=== PATIENT | female | born 1960 | race Caucasian/White ===

== ENCOUNTER → 2024-03-31 16:16 | Outpatient (REF) | payer MEDICARE, OTHER, SELFPAY | LOC: RAD 16:16 | PROVIDERS: ATTENDING PHYSICIAN Internal Medicine; FAMILY PHYSICIAN Nurse Practitioner Adult Health | DX: N18.31 Chronic kidney disease, stage 3a (principal) | CPT/HCPCS: 76770 ==

== ENCOUNTER → 2024-04-28 14:13 | Outpatient (REF) | payer OTHER, SELFPAY | LOC: RAD 14:13 | PROVIDERS: ATTENDING PHYSICIAN Nurse Practitioner Adult Health | DX: R05.1 Acute cough (principal) | CPT/HCPCS: 71046 ==

== ENCOUNTER 2024-06-05 20:35 | Inpatient (IN) | payer OTHER, SELFPAY ==
[2024-06-05] VITALS (9 sets, daily range): BP systolic 99–177; BP diastolic 75–122; BMI 17.4
[2024-06-05 15:40] LABS: COVID-19 Antigen Negative (Negative)
[2024-06-05 15:46] LABS: Lactic Acid 4.4 mmol/L (0.7-2.0)
[2024-06-05 15:50] LABS: % Basophils 0.4 % (0-2); % Eosinophils 0.4 % (0-6); % Immature Granulocytes 1.6 % (0-0.5); % Lymphocytes 5.4 % (20.5-51.1); % Monocytes 7.5 % (1.7-9.3); % Neutrophils 84.7 % (42.2-75.2); Absolute Basophils 0.1 10^3/uL (0-0.2); Absolute Eosinophils 0.1 10^3/uL (0-0.7); Absolute Immature Granulocytes 0.2 10^3/uL (0-0.05); Absolute Lymphocytes 0.7 10^3/uL (1.2-3.4); Absolute Neutrophils 11.6 10^3/uL (1.4-6.5); Hematocrit 36.6 % (37.0-47.0); Mean Corp Hgb Conc. 32.8 g/dL (33.0-37.0); Mean Corpuscular Hgb 29.7 pg (27.0-31.0); Mean Corpuscular Volume 90.6 fL (81.0-99.0); Mean Platelet Volume 8.2 fL (7.4-10.4); Nucleated Red Blood Cells % 0 %; Platelet Count 364 10^3/uL (130-400); Red Blood Cell Count 4.04 10^6/uL (4.20-5.40); Red Cell Dist. Width 15.2 % (11.5-14.5); White Blood Cell Count 13.7 10^3/uL (4.8-10.8)
[2024-06-05 16:11] LABS: ALT (SGPT) 12 U/L (0-35); AST (SGOT) 17 U/L (14-36); Albumin 3.8 g/dl (3.5-5.0); Alkaline Phosphatase 110 U/L (38-126); Blood Urea Nitrogen 27 mg/dl (7-17); Calcium 9.8 mg/dl (8.4-10.2); Carbon Dioxide 37 mmol/L (22-30); Chloride 83 mmol/L (98-107); Glucose 146 mg/dl (70-99); Potassium 4.5 mmol/L (3.5-5.1); Sodium 130 mmol/L (135-145); Total Bilirubin 0.4 mg/dl (0.2-1.3); Total Protein 7.3 g/dl (6.3-8.2); eGFR 41.49
[2024-06-05 16:25] LABS: Troponin I < 0.012 ng/ml
--- NOTE | 2024-06-05 16:46 | ED.GENMED ---
History of Present Illness
General
Chief Complaint: Blood Pressure Problem
Source: patient
Exam Limitations: none
Time Seen by Provider: 06/05/24 16:08
Nursing documentation reviewed up to this point in time: agreed with
History of Present Illness
History of Present Illness:
64 y/o F with h/o COPD
lung cancer s/p RUL resection, radiation
tonsil cancer s/p radiaition
htn, anxiety
2 weeks cough
went to on 05/25 and had cxr couldn't exclude pna
started pred 30 mg x 4 days and zpak
flu and covid were neg
cough never resolved
the pat 3-4 days she is now MCGILL, fatigued, not feelin g well
has to sit in the shower
started checking BP more regularly than twie a day which she normally takes it
always runs 'high 'in the morning snad has been lower at night so she has been holding her metop 25 ER and halfing her nifedipine 30 in the am
this morning her bp was 116/70s whih is unusually low
she didn't feel well
she didn't take her nifedpine
within an hour her bp crept up
she took it several more times up to 150/90, took her med
got worried and was planning on coming in later
but then around 2 pm while at [place] sudden onset of chest tightnes and sob
she got anxious from this and took asa and it resolved but she doesn't feel right
no vomiting, dairrhea, dysuria, h/o DVT/PE, leg swelling, sycnope, coughing blood, sroe throat
no new fever
Past History
Past History
ED Past Medical History: Cancer, COPD and HTN
ED Past Surgical History: Tonsilectomy and Other
Social History
Tobacco: Former smoker
Alcohol: None
Personal:
Review of Systems
Review of Systems
Allergies reviewed?: Yes
All Other Systems: Not applicable
Phy Exam
Physical Exam
Physical Exam:
GENERAL: Alert , anxious, tremulous, worse with intention
EYE: pupils equal and reactive
NECK: Supple
ENT: o/p clr, mmm.
CARDIAC: tachycardic
LUNGS: crackles and wheezes, occ cough
scoliosis SEVERE
ABDOMEN: Soft, without focal tenderness, no r/g, no cvat, normal bowel sounds
NEUROLOGICAL: Alert and oriented, no focal neuro deficits
SKIN: Warm and dry, skin intact.
MUSCULOSKELETAL: No edema, well perfused. neg mirtha's sign
PSYCH: Normal and appropriate interaction.
Sepsis
Sepsis Screening
Sepsis Assessment: Sepsis
Sepsis Screening: Lactate >/=4mmol/L
Sepsis Screen
Sepsis Screen: Sepsis
Date: 06/05/24
Time: 19:00
Course
Orders/Labs/Results
Orders:
Orders
06/05/24 15:04
Electrocardiogram (*1) Urgent
Reason for Study: Chest Pain
06/05/24 15:05
EKG- Treatment ONCE
06/05/24 15:14
COVID-19 Antigen Urgent
Source: Nasal Swab
Complete Blood Count/With Diff Urgent
Comprehensive Metabolic Panel Urgent
Lactic Acid Urgent
NT-proBNP Urgent
Comment: ADD ON
Troponin I Urgent
Influenza A+B Rapid Molecular Urgent
MARIAM Source: Nasal Swab
Specimen Description:
06/05/24 16:34
Add On- LAB Urgent
Tests Added?: bnp
06/05/24 16:42
CT Chest PE Study Urgent
Comment:
Reason For Exam: dyspnea, cough, cancer history
06/05/24 16:44
0.9% Sodium Chloride 1000 ml [Nss] 1,200 ml IV NOW STA
06/05/24 16:46
Procalcitonin Urgent
PCT Algorithmm Indication: Respiratory
06/05/24 16:50
Blood Culture Q30M
MARIAM Source: Blood/Venous
Specimen Description:
06/05/24 17:30
Blood Culture Q30M
MARIAM Source: Blood/Venous
Specimen Description:
06/05/24 18:32
Azithromycin 500 mg/250 ml [Zithromax Infusion] 500 mg in 250 ml IV NOW
CefTRIAXone [Rocephin] 1,000 mg IV NOW STA
06/05/24 20:10
Admit/Transfer Patient As Directed
Co-Sign Provider:
Level of Care: Inpatient admission
Assign to:: Telemetry
Physician / Group: Rigo
Diagnosis: Pneumonia, Sepsis
Reason for Telemetry: Chest Pain syndromes
Date to Stop Telemetry: 06/07/24
Time to Stop Telemetry: 11:00
Reason for Hospitalization: Pneumonia, Sepsis
Expected length of stay greater than two midnights?: Yes
ELOS- Estimated Length of Stay in days: 3
I certify the patient meets the requirements for IP care: Yes
PRN Pain Medication Management As Directed
May give lesser potent ordered pain med per pt: Yes
preference::
Protocol:: Medication orders for pain may be administered in a
manner that supports deferring to patient preference
when the pt is:
- Requesting an ordered lesser potent pain medication.
Least to most potent pain medications are defined
as: acetaminophen < NSAID < tramadol < opioids
(morphine, oxycodone, hydromorphone).
- Requesting a lesser dose of the same medication IF
ORDERED.
- Requesting a less intrusive route of administration
if both routes are prescribed by the provider (PO <
IV).
06/05/24 20:12
Code Status As Directed
Resuscitation Status: Full Code
06/07/24 11:00
DC Protocol for Telemetry ONCE
Abnormal Lab Results
06/05/24 06/05/24
15:14 16:46
WBC 13.7 H 10^3/uL
(4.8-10.8)
RBC 4.04 L 10^6/uL
(4.20-5.40)
Hct 36.6 L %
(37.0-47.0)
MCHC 32.8 L g/dL
(33.0-37.0)
RDW 15.2 H %
(11.5-14.5)
Abs Immat Gran (auto) 0.2 H 10^3/uL
(0-0.05)
Absolute Neuts (auto) 11.6 H 10^3/uL
(1.4-6.5)
Absolute Lymphs (auto) 0.7 L 10^3/uL
(1.2-3.4)
Absolute Monos (auto) 1.0 H 10^3/uL
(0.1-0.6)
Immature Gran % 1.6 H %
(0-0.5)
Neutrophils % 84.7 H %
(42.2-75.2)
Lymphocytes % 5.4 L %
(20.5-51.1)
Sodium 130 L mmol/L
(135-145)
Chloride 83 L mmol/L
(98-107)
Carbon Dioxide 37 H mmol/L
(22-30)
BUN 27 H mg/dl
(7-17)
Creatinine 1.4 H mg/dL
(0.6-1.0)
Glucose 146 H mg/dl
(70-99)
Lactic Acid 4.4 H* mmol/L
(0.7-2.0)
Procalcitonin 0.54 H ng/ml
(0.0-0.25)
06/05/24 15:14
06/05/24 15:14
Vital Signs
Initial and Last Documented VS:
Initial Vital Signs
Temp Pulse Resp BP Pulse Ox
36.9 C 130 24 177/122 92
06/05/24 15:01 06/05/24 15:01 06/05/24 15:01 06/05/24 15:01 06/05/24 15:01
Last Documented Vital Signs
Temp Pulse Resp BP Pulse Ox
36.9 C 104 17 99/75 94
06/05/24 15:01 06/05/24 21:00 06/05/24 21:00 06/05/24 21:00 06/05/24 21:00
MDM/Problems Addressed
Differential Diagnosis Includes:
PNA, PE, ACS, SEPSIS
MDM/Problems Addressed:
kalli miler 64 y/o F h/o lung ca remotely, anxiety, htn
2 weeks cough, neg flu/covid and had zpak but not better;
3 days fatigue with exertion and sob; tachy, pulse ox 92% slightly wheezy;
wbc 13 lactate 4; repeating after ivf;
bp normal
pe study neg
b/l pneumonia on CT
SEPSIS CRITERIA MET
ABX ORDERED
IVF AND NEEDS REPEAT LACTIC
STABLE VITALS
*Critical Care Note
Total Time (30-74mins, 75-104mins- exclusive of procedures): Not Applicable
ED Attending Note
-
Portions of this chart may have been created with voice recognition software.� Occasional wrong word or��sound alike� substitutions may have occurred due to the inherent limitations of voice recognition software.
Discharge Plan
Departure
Patient Disposition: Admit
Date of Disposition: 06/05/24
Time of Disposition: 18:24
Admit to: Telemetry
Presentation/result/management discussed w/ accepting MD/DO: Hospitalist
Condition: Fair
Covid-19: Negative COVID-19
Discharge Problem:
Pneumonia
Interventions
Interventions:
*Risk Screen - Suicide Last Done: 06/05/24 16:41
*General Assessment Last Done: 06/05/24 15:01
*Neglect/Abuse Screening Last Done: 06/05/24 16:41
*ED COVID-19 Vaccine History Last Done: 06/05/24 16:41
ED- Cardiac Assessment Last Done: 06/05/24 16:44
ED- Neurological Assessment Last Done: 06/05/24 16:44
ED- Pulmonary Assessment Last Done: 06/05/24 16:44
[2024-06-05] MEDS: NSS 1200 ML IV (16:47)
[2024-06-05 17:20] LABS: NT-proBNP 384 pg/ml
[2024-06-05 17:29] LABS: Procalcitonin 0.54 ng/ml (0.0-0.25)
[2024-06-05] MEDS: ZITHROMAX INFUSION 250 IV (18:54)
[2024-06-05] MEDS: ROCEPHIN 1000 MG IV (18:54)
--- NOTE | 2024-06-05 20:21 | HPS.HSE ---
Family Physician
-
Family Physician: ERVIN Cobos
Chief Complaint
-
Cough, Chest Tightness
History of Present Illness
Patient is a 64y F with PMH significant for COPD, prior lung cancer, CKD and hypertension who presents to ED complaining of cough and chest pain. Patient states that she has been ill with cough / congestion symptoms for the past 3 weeks or so.
She was seen at an Urgent Care about two weeks ago and treated with a course of azithromycin and prednisone. She states that her fever resolved; however, her cough and fatigue has persisted. She has been monitoring her SpO2 at home and this has
frequently been in the 80s.
Today she states she was actually feeling somewhat better. However, this evening she developed the sudden onset of chest tightness. She took an ASA at home and called 911 and was brought to the ED via EMS.
At present she is resting comfortably in the ED. She states that she feels better with supplemental O2. She is pain-free at present.
Medical History
Past Medical History
Past Medical History: Reports Other
Additional Past Medical History:
NSCLC (RUL lobectomy, chemo, XRT)
Left Upper Lobe Nodule (excised)
Tonsillar Cancer (excision / XRT)
Hypertension
CKD III
Chronic Hyponatremia
Myasthenia Gravis
COPD
Hypothyroidism
Anxiety / Depression
Chronic Pain Syndrome
Past Surgical History: Reports Other
Additional Past Surgical History:
Right Upper Lobectomy
Left Lung Nodule Resection
T&A
Tonsillar Cancer Resection
Social History
Tobacco: Former Smoker (Quit smoking in 2009. Approx 50 pack years total history.)
Alcohol: Occasional (Rare.)
Drug: None
Family History
Family History: Cancer and Hypertension
Allergies / Home Medications
Allergies reflects when Allergies were last updated in [facility].
Home Medications with original date entered in [facility]
Allergy/Medication List:
Allergies
Allergy/AdvReac Type Severity Reaction Status Date / Time
No Known Allergies Allergy Verified 06/05/24 15:01
Home Medications
fluticasone furoate 100 mcg-vilanterol 25 mcg/dose inhalation powder (Breo Ellipta) 1 inh inhalation R DAILY Lung/breathing issues 07/23/22
levothyroxine 75 mcg tablet 75 mcg PO DAILY AT 0700 Thyroid 07/23/22
lorazepam 0.5 mg tablet 0.5 mg PO DAILYPRN PRN anxiety 07/23/22
metoprolol succinate 25 mg tablet,extended release 24 hr 25 mg PO DAILY Blood pressure 07/23/22
mirtazapine 15 mg tablet 15 mg PO HS Mental Health/Anxiety 07/23/22
oxycodone 30 mg tablet 15 mg PO DAILY 07/23/22
lorazepam 0.5 mg tablet 0.5 mg PO HS mental health/sleep 02/21/23
furosemide 20 mg tablet 20 mg PO DAILY #30 tabs 02/26/23
buprenorphine 20 mcg/hour weekly transdermal patch 1 patch transdermal TU 06/05/24
nifedipine 30 mg tablet,extended release 15 mg PO DAILY 06/05/24
nystatin 100,000 unit/mL oral suspension 5 ml PO QID 06/05/24
oxycodone 30 mg tablet 15 mg PO DAILYPRN PRN severe pain 06/05/24
sennosides 8.6 mg tablet (senna) 17.2 mg PO HS 06/05/24
Review of Systems
-
History Source: Patient
A 12 point ROS was completed and negative except as noted: Yes
Constitutional: Reports Fatigue; Denies Fever or Chills
EENT: Denies Sore Throat
Respiratory: Reports Cough and Trouble Breathing
Cardiac: Reports Chest Pain and Palpitations; Denies Diaphoresis or Syncope
Abdomen/GI: Denies Abdominal Pain, Nausea, Vomiting or Diarrhea
: Denies Dysuria or Frequency
Musculoskeletal: Denies Joint Pain or Edema
Neurological: Denies Dizzy or Headache
Psych: Denies Depression or Anxiety
Physical Exam
Vital Signs
Vital Signs
Temp Pulse Resp BP Pulse Ox
98.4 F 105 20 104/89 95
06/05/24 15:01 06/05/24 19:15 06/05/24 19:15 06/05/24 19:00 06/05/24 19:15
Physical Exam
General: Other (64y F in no acute distress. Thin / cachectic.)
HEENT: Moist mucous membranes, PERRLA and Other (Neck supple.)
Respiratory: Other (Coarse rhonchi throughout. No wheezing.)
Cardiac: S1/S2 and Regular Rhythm; No Murmur
GI: Soft, Non Tender, Non Distended and Normal Bowel Sounds
Musculoskeletal: No Clubbing, No Cyanosis, No Edema and Other (R scapula post-surgical changes / deformity from RUL resection)
Neuro: AO x 3
Laboratory Results
-
06/05/24 15:14
06/05/24 15:14
Laboratory Results
Lactic Acid 4.4 mmol/L (0.7-2.0) H* 06/05/24 15:14
Total Bilirubin 0.4 mg/dl (0.2-1.3) 06/05/24 15:14
AST 17 U/L (14-36) 06/05/24 15:14
ALT 12 U/L (0-35) 06/05/24 15:14
Alkaline Phosphatase 110 U/L (38-126) 06/05/24 15:14
Troponin I < 0.012 ng/ml 06/05/24 15:14
Impression/Plan
-
A/P: Patient is a 64y F with PMH significant for multiple malignancies s/p treatment, COPD, HTN and CKD who presents to ED complaining of 3 weeks of respiratory symptoms and chest tightness starting this evening.
Multifocal Pneumonia
Sepsis secondary to the above
- Admit for further evaluation and treatment.
- Patient presents with tachycardia, tachypnea, leukocytosis and CT scan showing pneumonia.
- CT done in the ED shows bibasilar opacities +/- lingular opacity c/w pneumonia.
- Lactate elevated at 4.4.
- Abx with ceftriaxone and doxycycline for now.
- Supportive care including nebs, mucolytics, etc.
- Follow for clinical improvement.
Chest Pain
- Patient presented this evening after sudden onset of chest tightness, palpitations and increased SOB.
- CT negative for PE.
- EKG without evidence for acute ischemia. Non-specific ST and T wave changes.
- Initial troponin is undetectable. Follow for changes.
- Monitor for any new / recurrent symptoms.
- Suspect related to pneumonia.
Chronic Hyponatremia
- Stable. Na levels appear to be at / near known baseline.
- Hold Lasix acutely given sepsis / lactate elevation.
- Fluid restriction. Check urine studies.
- Follow for changes.
CKD III
- Stable. Renal function is at / near known baseline.
- Follow for changes.
Benign Hypertension
- Stable. Continue outpatient med regimen with holding parameters.
COPD
- No evidence of acute exacerbation, active wheezing, etc.
- Nebs ATC and PRN.
Chronic Pain Syndrome
Chronic Opioid Dependence
- Stable. No current complaints of pain.
- Continue buprenorphine patch. Oxycodone PRN breakthrough pain.
Anxiety /Depression
- Stable. Continue outpatient medications.
Hypothyroidism
- Stable. Continue T4 supplementation.
DVT Prophylaxis: Subcut Heparin
Code Status: Full
[2024-06-05 22:54] LABS: Troponin I < 0.012 ng/ml
[2024-06-05] MEDS: HEPARIN 5000 UNITS SC (23:03)
[2024-06-05] MEDS: SENOKOT 17.2 MG PO (23:03)
[2024-06-05] MEDS: REMERON 15 MG PO (23:04)
[2024-06-05] MEDS: ROXICODONE 15 MG PO (23:04)
[2024-06-05] MEDS: ATIVAN 0.5 MG PO (23:04)
[2024-06-06 03:50] VITALS: BP 141/99
[2024-06-06 04:23] LABS: Troponin I < 0.012 ng/ml
[2024-06-06] MEDS: SYNTHROID 75 MCG PO (05:19)
[2024-06-06 07:30] VITALS: BP 136/90
[2024-06-06] MEDS: SYMBICORT 160/4.5 MCG INHALER 2 PUFF INH ×2 (07:46→19:13)
[2024-06-06] MEDS: DUONEB 3 ML INH ×4 (07:46→19:13)
[2024-06-06 07:54] LABS: Hematocrit 29.3 % (37.0-47.0); Hemoglobin 9.6 g/dL (12.0-16.0); Mean Corp Hgb Conc. 32.8 g/dL (33.0-37.0); Mean Corpuscular Hgb 28.9 pg (27.0-31.0); Mean Corpuscular Volume 88.3 fL (81.0-99.0); Mean Platelet Volume 8.6 fL (7.4-10.4); Platelet Count 325 10^3/uL (130-400); Red Blood Cell Count 3.32 10^6/uL (4.20-5.40); Red Cell Dist. Width 15.1 % (11.5-14.5); White Blood Cell Count 8.6 10^3/uL (4.8-10.8)
[2024-06-06 08:08] LABS: Blood Urea Nitrogen 20 mg/dl (7-17); Carbon Dioxide 36 mmol/L (22-30); Chloride 88 mmol/L (98-107); Estimated Creatinine Clearance 29 ml/min; Glucose 85 mg/dl (70-99); HDL Cholesterol 38 mg/dl; LDL Cholesterol, Calculated 85 mg/dl; Potassium 3.5 mmol/L (3.5-5.1); Sodium 131 mmol/L (135-145); Total Cholesterol 145 mg/dl (50-199); Triglyceride 114 mg/dl (10-149); Very Low Density Lipoprotein 22 mg/dl (0-30); eGFR 45.35
[2024-06-06] MEDS: TOPROL XL 25 MG PO (08:36)
[2024-06-06] MEDS: HEPARIN 5000 UNITS SC ×2 (08:36→15:06)
[2024-06-06] MEDS: VIBRAMYCIN 100 MG PO ×2 (08:36→21:06)
[2024-06-06] MEDS: MUCINEX 600 MG PO ×2 (08:36→21:06)
[2024-06-06] MEDS: ROXICODONE 15 MG PO ×2 (08:44→17:12)
[2024-06-06 10:22] LABS: Troponin I < 0.012 ng/ml
[2024-06-06 10:26] LABS: Glycohemoglobin (HgbA1c) 6.3 % (4.0-5.6)
[2024-06-06 10:36] LABS: Urine Sodium 51 mmol/L (30-90)
[2024-06-06 11:03] VITALS: BMI 17.4
[2024-06-06 11:30] VITALS: BP 118/86
[2024-06-06 12:47] LABS: Osmolality Urine 314 mOsm/kg (300-900)
--- NOTE | 2024-06-06 13:57 | W.PN.HOSP.TC ---
Today's Communication/Plan
-
see plan above
Assessment / Plan
Assessment / Plan
A/P: Patient is a 64y F with PMH significant for multiple malignancies s/p treatment, COPD, HTN and CKD who presents to ED complaining of 3 weeks of respiratory symptoms and chest tightness starting this evening.
Multifocal Pneumonia
Severe Sepsis secondary to the above; lactic 4.4 on admission
- HD stable today
- Patient presents with tachycardia, tachypnea, leukocytosis and CT scan showing pneumonia.
- CT done in the ED shows bibasilar opacities +/- lingular opacity c/w pneumonia.
- Lactate elevated at 4.4.
- cw Abx with ceftriaxone and doxycycline for now.
- Supportive care including nebs, mucolytics, etc.
- Follow for clinical improvement.
Chest Pain
- Patient presented this evening after sudden onset of chest tightness, palpitations and increased SOB.
- CT negative for PE. No TX based on trops.
- EKG without evidence for acute ischemia. Non-specific ST and T wave changes.
- Monitor for any new / recurrent symptoms.
- Suspect related to pneumonia.
Chronic Hyponatremia
- Stable. Na levels appear to be at / near known baseline.
- Hold Lasix acutely given sepsis / lactate elevation.
- Fluid restriction. Check urine studies.
- Follow for changes.
CKD III
- Stable. Renal function is at / near known baseline.
- Follow for changes.
Benign Hypertension
- Stable. Continue outpatient med regimen with holding parameters.
COPD
- No evidence of acute exacerbation, active wheezing
- Nebs ATC and PRN.
Chronic Pain Syndrome
Chronic Opioid Dependence
- Stable. No current complaints of pain.
- Continue buprenorphine patch. Oxycodone PRN breakthrough pain.
Anxiety /Depression
- Stable. Continue outpatient medications.
Hypothyroidism
- Stable. Continue T4 supplementation.
DVT Prophylaxis: Subcut Heparin
Code Status: Full
Anticipated Discharge: > 48 hours
Subjective/Interval History
-
Date of Service: June 06, 2024
Feels bit better but hasnt gotten out of bed to get an idea.
She has lot of exertional SOB.
Cough present and productive.
Denies wheezing.Denies Fever or chills.
She had fever 2 weeks ago prior to onset of all this.
She was having night sweats prior to admission.
Objective Data
-
Labs:
Laboratory Results
06/06/24
07:02
WBC 8.6
Hgb 9.6 L
Hct 29.3 L
Plt Count 325
Sodium 131 L
Potassium 3.5
Chloride 88 L
Carbon Dioxide 36 H
BUN 20 H
Creatinine 1.3 H
Glucose 85
Calcium 9.0
Vital Signs:
Vital Signs
Temp Pulse Resp BP Pulse Ox
97.8 F 96 18 118/86 99
06/06/24 11:30 06/06/24 11:30 06/06/24 11:30 06/06/24 11:30 06/06/24 11:30
I&O
06/05/24 06/06/24 06/07/24
06:59 06:59 06:59
Intake Total 240 / 240
Balance 240 / 240
Review of Systems
-
EENT: Denies Sore Throat
Cardiac: Denies Chest Pain
Abdomen/GI: Denies Abdominal Pain, Nausea or Vomiting
Neuro: Denies Dizzy
Physical Exam
-
General: Comfortable
Respiratory: Wheezes (transient in RUL ), Crackles (few bibasal) and Non Labored Respirations; Negative Rhonchi or Accessory Resp Muscle Use
Cardiac: Regular Rhythm, S1/S2 and Tachycardic
GI: Soft
Musculoskeletal: No Edema
Neuro: AO x 3
Psych: Calm; Negative Confused
Data Reviewed
-
Labs: Labs Reviewed by me
[2024-06-06 15:30] VITALS: BP 108/64
[2024-06-06] MEDS: STERILE WATER FOR INJECTION 10 ML IV (17:04)
[2024-06-06] MEDS: ROCEPHIN 1000 MG IV (17:05)
[2024-06-06 19:39] VITALS: BP 124/79
[2024-06-06] MEDS: SENOKOT 17.2 MG PO (21:06)
[2024-06-06] MEDS: ATIVAN 0.5 MG PO (21:06)
[2024-06-06] MEDS: REMERON 15 MG PO (21:06)
[2024-06-06] MEDS: HEPARIN SC (23:00)
[2024-06-06 23:49] VITALS: BP 117/85
[2024-06-07] VITALS (7 sets, daily range): BP systolic 93–143; BP diastolic 63–96; BMI 17.3
[2024-06-07] MEDS: SYNTHROID 75 MCG PO (05:12)
[2024-06-07 07:26] LABS: Hematocrit 29.1 % (37.0-47.0); Hemoglobin 9.7 g/dL (12.0-16.0); Mean Corp Hgb Conc. 33.3 g/dL (33.0-37.0); Mean Corpuscular Hgb 29.6 pg (27.0-31.0); Mean Corpuscular Volume 88.7 fL (81.0-99.0); Mean Platelet Volume 8.5 fL (7.4-10.4); Platelet Count 353 10^3/uL (130-400); Red Blood Cell Count 3.28 10^6/uL (4.20-5.40); Red Cell Dist. Width 15.4 % (11.5-14.5); White Blood Cell Count 8.8 10^3/uL (4.8-10.8)
[2024-06-07] MEDS: DUONEB 3 ML INH ×4 (07:44→19:14)
[2024-06-07] MEDS: SYMBICORT 160/4.5 MCG INHALER 2 PUFF INH ×2 (07:44→19:14)
[2024-06-07] MEDS: MUCINEX 600 MG PO ×2 (08:01→20:10)
[2024-06-07] MEDS: HEPARIN 5000 UNITS SC ×2 (08:01→15:34)
[2024-06-07] MEDS: VIBRAMYCIN 100 MG PO ×2 (08:01→20:10)
[2024-06-07 08:03] LABS: Blood Urea Nitrogen 21 mg/dl (7-17); Calcium 9.3 mg/dl (8.4-10.2); Carbon Dioxide 34 mmol/L (22-30); Chloride 87 mmol/L (98-107); Estimated Creatinine Clearance 31 ml/min; Glucose 84 mg/dl (70-99); Potassium 3.8 mmol/L (3.5-5.1); Sodium 128 mmol/L (135-145); eGFR 49.92
[2024-06-07] MEDS: TOPROL XL 25 MG PO (08:05)
[2024-06-07] MEDS: ROXICODONE 15 MG PO ×2 (08:47→16:58)
--- NOTE | 2024-06-07 12:18 | W.PN.HOSP.TC ---
Today's Communication/Plan
-
CW current abx
Wean O2
DC planning
Assessment / Plan
Assessment / Plan
A/P: Patient is a 64y F with PMH significant for multiple malignancies s/p treatment, COPD, HTN and CKD who presents to ED complaining of 3 weeks of respiratory symptoms and chest tightness starting this evening.
Multifocal Pneumonia
Severe Sepsis secondary to the above; lactic 4.4 on admission
- Patient presents with tachycardia, tachypnea, leukocytosis and CT scan showing pneumonia.
- CT done in the ED shows bibasilar opacities +/- lingular opacity c/w pneumonia.
- Lactate elevated at 4.4.
- cw Abx with ceftriaxone and doxycycline for now.
- Supportive care including nebs, mucolytics, etc.
- Improved clinically. On lesser FIO2
- BCX neg so far. Await sputum cx report.
Chest Pain
- Patient presented this evening after sudden onset of chest tightness, palpitations and increased SOB.
- CT negative for PE. No OR based on trops.
- EKG without evidence for acute ischemia. Non-specific ST and T wave changes.
- Monitor for any new / recurrent symptoms.
- Suspect related to pneumonia.
Chronic Hyponatremia
- Stable. Na levels appear to be at / near known baseline.
- Hold Lasix acutely given sepsis / lactate elevation.
- Fluid restriction. Check urine studies.
- Follow for changes.
CKD III
- Stable. Renal function is at / near known baseline.
- Follow for changes.
Benign Hypertension
- Stable. Continue outpatient med regimen with holding parameters.
COPD
- No evidence of acute exacerbation, active wheezing
- Nebs ATC and PRN.
Chronic Pain Syndrome
Chronic Opioid Dependence
- Stable. No current complaints of pain.
- Continue buprenorphine patch. Oxycodone PRN breakthrough pain.
Anxiety /Depression
- Stable. Continue outpatient medications.
Hypothyroidism
- Stable. Continue T4 supplementation.
DVT Prophylaxis: Subcut Heparin
Code Status: Full
If remains improved this way will plan on DC in am home
Anticipated Discharge: Within 24 hours
Subjective/Interval History
-
Date of Service: June 07, 2024
Patient is feeling improved. Denies shortness of breath at rest. Improved fatigue.
Less cough.
No fevers.
Objective Data
-
Labs:
Laboratory Results
06/07/24
06:45
WBC 8.8
Hgb 9.7 L
Hct 29.1 L
Plt Count 353
Sodium 128 L
Potassium 3.8
Chloride 87 L
Carbon Dioxide 34 H
BUN 21 H
Creatinine 1.2 H
Glucose 84
Calcium 9.3
Vital Signs:
Vital Signs
Temp Pulse Resp BP Pulse Ox
97.6 F 75 15 143/96 93
06/07/24 11:10 06/07/24 11:41 06/07/24 11:41 06/07/24 11:10 06/07/24 11:41
I&O
06/06/24 06/07/24 06/08/24
06:59 06:59 06:59
Intake Total 360 / 360
Balance 360 / 360
Review of Systems
-
EENT: Denies Sore Throat
Respiratory: Reports Cough (not much productive)
Cardiac: Denies Chest Pain
Abdomen/GI: Denies Abdominal Pain, Nausea or Vomiting
Neuro: Denies Dizzy
Physical Exam
-
General: No Apparent Distress
Respiratory: Non Labored Respirations; Negative Wheezes, Crackles or Accessory Resp Muscle Use
Cardiac: Regular Rhythm and S1/S2
GI: Soft
Neuro: AO x 3
Data Reviewed
-
Labs: Labs Reviewed by me
[2024-06-07] MEDS: ROCEPHIN 1000 MG IV (17:00)
[2024-06-07] MEDS: STERILE WATER FOR INJECTION 10 ML IV (17:01)
[2024-06-07] MEDS: SENOKOT 17.2 MG PO (20:10)
[2024-06-07] MEDS: REMERON 15 MG PO (22:22)
[2024-06-07] MEDS: ATIVAN 0.5 MG PO (22:24)
[2024-06-07] MEDS: HEPARIN SC (23:48)
[2024-06-08 03:28] VITALS: BP 119/84
[2024-06-08 05:09] VITALS: BMI 17.5
[2024-06-08] MEDS: SYNTHROID 75 MCG PO (05:11)
[2024-06-08 06:54] VITALS: BP 121/78
[2024-06-08] MEDS: DUONEB 3 ML INH ×3 (07:17→15:19)
[2024-06-08] MEDS: SYMBICORT 160/4.5 MCG INHALER 2 PUFF INH (07:18)
[2024-06-08] MEDS: HEPARIN SC ×2 (08:32→16:09)
[2024-06-08 08:33] LABS: Blood Urea Nitrogen 27 mg/dl (7-17); Calcium 9.2 mg/dl (8.4-10.2); Carbon Dioxide 34 mmol/L (22-30); Chloride 88 mmol/L (98-107); Estimated Creatinine Clearance 32 ml/min; Glucose 87 mg/dl (70-99); Potassium 3.7 mmol/L (3.5-5.1); Sodium 131 mmol/L (135-145); eGFR 49.92
[2024-06-08] MEDS: TOPROL XL 25 MG PO (08:33)
[2024-06-08] MEDS: VIBRAMYCIN 100 MG PO (08:33)
[2024-06-08] MEDS: MUCINEX 600 MG PO (08:33)
[2024-06-08] MEDS: ROXICODONE 15 MG PO (08:37)
[2024-06-08 11:04] VITALS: BP 109/79
[2024-06-08 15:53] VITALS: BP 106/75
--- NOTE | 2024-06-08 16:22 | CM ---
Patient seen at bedside with physician. Patient plan is home with no needs. Patient PCP is Dr. Inez oCok and she uses the [facility] on [facility]. Patient plan is home with no needs.
Plan; home with no needs
--- NOTE | 2024-06-08 18:38 | W.PN.HOSP.TC ---
Addendum entered and electronically signed by Colleen Keys MD 06/08/24 19:49:
I saw and evaluated the patient independently. I reviewed the resident�s note and agree with findings and plan as documented by Dr. Melton.
GENERAL: well developed, well nourished, female in no apparent distress
HEENT: NC/AT--NO O2 requirements
HEART: regular rate and rhythm, +S1, +S2
LUNGS : raspy breath sounds bilaterally
ABDOM: soft, nontender, nondistended, + bowel sounds
EXT: no cyanosis, clubbing, or edema
NEUROLOGIC: grossly intact
sepsis due to Multifocal Pneumonia with lactic acidosis--ceftriaxone/doxy--to cephalexin/doxy at d/c for 1 more week--blood cultures neg--nebs/mucolytics
Chronic Hyponatremia- - Stable. Na levels appear to be at / near known baseline - Hold Lasix acutely given sepsis / lactate elevation.
CKD III - Stable. Creatinine at baseline
Essential hypertension--held nifedipine and lasix--hold at d/c and discuss restarting with PCP
COPD - No evidence of acute exacerbation - Nebs
Chronic Pain Syndrome with Chronic Opioid Dependence - Continue buprenorphine patch. Oxycodone PRN breakthrough pain.
Anxiety /Depression - Stable. Continue lorazepam 0.5 as needed
Hypothyroidism - Stable. Continue T4 supplementation.
DVT Prophylaxis: Subcut Heparin
Code Status: Full
OK for d/c
Original Note:
Today's Communication/Plan
-
Continue ABX
Discharge planning
Assessment / Plan
Assessment / Plan
64y F with PMH significant for lung and tonsillar cancers status post treatment, COPD, HTN and CKD who presents to ED complaining of 3 weeks of respiratory symptoms and chest tightness.
Multifocal Pneumonia
Sepsis secondary to the above; lactic 4.4 on admission, chest pain
- Patient presents with tachycardia, tachypnea, leukocytosis and CT scan showing pneumonia.
- CT done in the ED shows bibasilar opacities +/- lingular opacity c/w pneumonia.
- CT negative for PE. negative trops. EKG without evidence for acute ischemia.
-Continue ceftriaxone and doxycycline for now.
- Supportive care including nebs, mucolytics, etc.
-Blood cultures negative, sputum culture pending
- Improved clinically. Weaned off 1 L nasal cannula. Okay to discharge home
Chronic Hyponatremia
- Stable. Na levels appear to be at / near known baseline.
- Hold Lasix acutely given sepsis / lactate elevation.
CKD III
- Stable. Creatinine at baseline
- Follow for changes.
Essential hypertension
- Stable while nifedipine and furosemide were held
-Continue to follow, recommend holding while blood pressures are stable, close follow-up with PCP to continue/discontinue
COPD
- No evidence of acute exacerbation
- Nebs ATC and PRN.
Chronic Pain Syndrome
Chronic Opioid Dependence
- Stable. No current complaints of pain.
- Continue buprenorphine patch. Oxycodone PRN breakthrough pain.
Anxiety /Depression
- Stable. Continue lorazepam 0.5 as needed
Hypothyroidism
- Stable. Continue T4 supplementation.
DVT Prophylaxis: Subcut Heparin
Code Status: Full
Anticipated Discharge: Today
Subjective/Interval History
-
Date of Service: June 08, 2024
Pt feels well today, requests to be discharged
Objective Data
-
Labs:
Laboratory Results
06/08/24
07:21
Sodium 131 L
Potassium 3.7
Chloride 88 L
Carbon Dioxide 34 H
BUN 27 H
Creatinine 1.2 H
Glucose 87
Calcium 9.2
Vital Signs:
Vital Signs
Temp Pulse Resp BP Pulse Ox
98.3 F 103 20 106/75 95
06/08/24 15:53 06/08/24 15:53 06/08/24 15:53 06/08/24 15:53 06/08/24 15:53
I&O
06/07/24 06/08/24 06/09/24
06:59 06:59 06:59
Intake Total 360 / 360 960 / 960
Output Total 400 / 400
Balance 360 / 360 560 / 560
Review of Systems
-
History Source: Patient
Constitutional: Reports Fatigue; Denies Fever
Respiratory: Reports Cough; Denies Trouble Breathing
Cardiac: Denies Chest Pain or Palpitations
Abdomen/GI: Denies Bloody Stools, Black Stools or Hematemesis
Genitourinary: Denies Bleeding
Hematologic / Lymphatic: Denies Bleeding
Physical Exam
-
General: Well Developed, Well Nourished, No Apparent Distress and Comfortable; Negative Respiratory Distress
HEENT: Normocephalic, Atraumatic, Moist Mucous Membranes and Anicteric
Respiratory: Rhonchi (Mild, diffuse)
Cardiac: Regular Rhythm and S1/S2; Negative Murmur, Rub or Calf Tenderness
Musculoskeletal: No Cyanosis and No Edema
Skin: Warm and Dry
Neuro: Awake, Alert and Oriented
Psych: Calm
--- NOTE | 2024-06-08 18:54 | W.DCSUMMARY ---
Addendum entered and electronically signed by Colleen Keys MD 06/08/24 19:51:
Read, reviewed, and agree. See same day progress note for additional details. Time spent coordinating care, DC planning, review of DC plan of care with resident, transition of care, review of records in EMR, med rec, consults, notes, d/w
consultants, nursing, family, and CM = 33 minutes
Original Note:
Discharge Summary
Discharge Data
Date of Admission: 06/05/24
Date of Discharge: 06/08/24
-
Pending Results: No
Hospital Course
Discharging Physician : Elysia Melton MD; Colleen Keys MD
Disposition : Home
Primary care physician : Yolanda Cook CRNP
Principal Discharge diagnosis : Sepsis secondary to pneumonia
Chronic Discharge diagnosis : CKD stage III, hypertension, COPD, chronic pain syndrome, anxiety/depression, hypothyroidism
Hospital Course :
Patient is a 64y F with PMH significant for COPD, prior lung cancer, CKD and hypertension who presents to ED complaining of cough and chest pain. She had been ill with cough / congestion symptoms for the past 3 weeks, was seen at an Urgent Care
about two weeks prior to admission, treated with a course of azithromycin and prednisone. Residual cough and fatigue persisted. SPO2 monitoring at home with frequent 80s. Called 911 after onset of chest tightness.
On arrival, she was noted to be tachypneic, with leukocytosis, and elevated lactate 4.4. Lung auscultation revealed coarse rhonchi throughout, and she required 2 L nasal cannula. There was suspicion for COPD exacerbation versus pulmonary embolism
versus pneumonia. CT chest revealed bilateral pneumonia. She was started on ceftriaxone and doxycycline with improvement in his symptoms throughout stay. Blood cultures and sputum culture were unremarkable. Nifedipine and furosemide were held
given sepsis and low blood pressure on presentation. Blood pressures remained stable throughout stay. Other home medications were continued
She was weaned off nasal cannula on day of discharge, reporting no dyspnea on room air and with ambulation, and no noted hypoxia. She is to continue PO Keflex to complete 10-day course and doxycycline to complete 5-day course. Close follow-up with
PCP recommended. Furosemide and nifedipine held at discharge pending evaluation by PCP. Follow-up chest imaging recommended 2 to 3 weeks after discharge.
Important imaging findings :
Chest CT 06/05: No CTA evidence for an acute pulmonary thromboembolism. Pneumonia in the basilar aspects of the bilateral lower lobes and in the lingula. Chronic postoperative changes of the right upper chest with resultant chronic deformities,
similar compared to previous chest radiographs although no prior CT imaging of the chest is currently available for direct comparison. Mild bilateral hilar lymphadenopathy, nonspecific but likely reactive.
Discharge Plan
-
Patient Disposition: Home (Routine Discharge)
Discharge Diagnosis/Procedures: Sepsis secondary to pneumonia
Condition: Good
Diet: Low Sodium
Activity: As tolerated
Driving Restrictions: As prior to admission
Bathing Restrictions: None
Referrals:
Yolanda Cook CRNP [Family Provider] -
Prescriptions:
New
cephalexin 500 mg capsule
1,000 mg PO BID 7 Days Qty: 30 0RF
doxycycline hyclate 100 mg Capsule
100 mg PO Q12 Qty: 5 0RF
Continued
levothyroxine 75 mcg tablet
75 mcg PO DAILY@06
lorazepam 0.5 mg tablet
0.5 mg PO DAILYPRN PRN (Reason: anxiety)
mirtazapine 15 mg tablet
15 mg PO HS
oxycodone 30 mg tablet
15 mg PO DAILY
Patient Comments:
02/21/2023: last filled 02/21/23, 40 tabs for 30 days from [facility]#[id number]
fluticasone furoate-vilanterol [Breo Ellipta] 100-25 mcg/dose blister with device
1 inh INHALATION R DAILY
lorazepam 0.5 mg tablet
0.5 mg PO HS
sennosides [senna] 8.6 mg Tablet
17.2 mg PO HS
nystatin 100,000 unit/mL Suspension
5 ml PO QID
oxycodone 30 mg Tablet
15 mg PO DAILYPRN PRN (Reason: severe pain)
buprenorphine 20 mcg/hour Patch Weekly
1 patch TRANSDERMAL TU
metoprolol succinate 25 mg tablet extended release 24 hr
25 mg PO DAILY Qty: 0 0RF
Rx Instructions:
Patient can take at night time starting from tomorrow night
Held
furosemide 20 mg Tablet
20 mg PO DAILY Qty: 30 0RF
Hold Instructions: Discuss restarting Lasix with PCP
nifedipine 30 mg tablet extended release
15 mg PO DAILY
Hold Instructions: Discuss restarting this with your PCP
Discharge Orders:
Discharge Patient (As Directed); Ordered 06/08/24
Ordered By: Elysia Melton
Discharge Date and Time
Discharge Date/Time: 06/08/24 18:04
Print Language: PERUVIAN
== END 2024-06-08 18:04 | disposition home or self-care (01) | DRG 871 ==
LOC: 4 EAST ACU 20:35
PROVIDERS: Emergency Medicine; Internal Medicine; Nurse Practitioner Family; Physician Assistant; Student in an Organized Health Care Education/Training Program; ADMITTING PHYSICIAN Hospitalist; ATTENDING PHYSICIAN Internal Medicine; EMERGENCY PHYSICIAN Emergency Medicine; FAMILY PHYSICIAN Nurse Practitioner Adult Health
DX: A41.9 Sepsis, unspecified organism (principal); J18.9 Pneumonia, unspecified organism; J44.0 Chronic obstructive pulmonary disease with (acute) lower respiratory infection; E87.1 Hypo-osmolality and hyponatremia; F11.20 Opioid dependence, uncomplicated; E87.20 Acidosis, unspecified; I12.9 Hypertensive chronic kidney disease with stage 1 through stage 4 chronic kidney disease, or unspecified chronic kidney disease; N18.30 Chronic kidney disease, stage 3 unspecified; E03.9 Hypothyroidism, unspecified; F32.A Depression, unspecified; F41.9 Anxiety disorder, unspecified; G89.4 Chronic pain syndrome; R65.20 Severe sepsis without septic shock; G70.00 Myasthenia gravis without (acute) exacerbation; Z79.890 Hormone replacement therapy; Z87.891 Personal history of nicotine dependence; Z85.118 Personal history of other malignant neoplasm of bronchus and lung; Z90.2 Acquired absence of lung [part of]; Z92.21 Personal history of antineoplastic chemotherapy; Z92.3 Personal history of irradiation; Z11.52 Encounter for screening for COVID-19; Z79.899 Other long term (current) drug therapy
CPT/HCPCS: 71275; 80048; 80053; 80061; 83036; 83605; 83880; 83935; 84145; 84300; 84484; 85025; 85027; 87040; 87070; 87077; 87147; 87205; 87502; 87811; 93005; 94640; 96361; 96365; 96375; 99285; Q9967

== ENCOUNTER → 2024-07-01 12:16 | Outpatient (REF) | payer OTHER, SELFPAY | LOC: RAD 12:16 | PROVIDERS: ATTENDING PHYSICIAN Nurse Practitioner Adult Health | DX: J18.9 Pneumonia, unspecified organism (principal) | CPT/HCPCS: 71046 ==

== ENCOUNTER → 2025-03-23 14:00 | Outpatient (REF) | payer OTHER, SELFPAY | LOC: DHVS 14:00 | PROVIDERS: ATTENDING PHYSICIAN Internal Medicine; FAMILY PHYSICIAN Nurse Practitioner Adult Health | DX: N17.9 Acute kidney failure, unspecified (principal) | CPT/HCPCS: 93975 ==